=== PATIENT | male | born 1975 | race African-American/Black ===

== ENCOUNTER 2017-09-05 16:34 | Emergency (ER) | payer SELFPAY ==
[~2017-09-05] VITALS: Ht 182.9 cm; Wt 86.2 kg
[~2017-09-05 16:34] MED LIST: ATARAX50 MG ORAL; BENADRYL25 MG ORAL; PEPCID AC20 M2 PO; PREDNISONE50 MG ORAL
[2017-09-05] MEDS ORDERED: ROBAXIN-750750 MG PO (17:19)
[2017-09-05] MEDS ORDERED: IBUPROFEN600 MG ORAL (17:19)
[2017-09-05 17:28] VITALS: BP 97/62
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
== END 2017-09-05 17:27 | disposition home or self-care (01) ==
LOC: EMR 17:11
DX: Z04.1 Encounter for examination and observation following transport accident (principal)
CPT/HCPCS: 99284